=== PATIENT | male | born 1995 | race African-American/Black ===

== ENCOUNTER 2020-03-20 18:21 | Emergency (ER) | payer SELFPAY ==
[2020-03-20 18:22] VITALS: BP 162/90; PULSE 96; RESP 16; TEMP 36.1; O2SAT 98; BMI 40.1
[2020-03-20 18:28] VITALS: BP 162/90; PULSE 96; RESP 16; TEMP 36.1; O2SAT 98
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
[2020-03-20] MEDS: Cephalexin 250 MG Capsule 500 MG PO (18:57)
== END 2020-03-20 19:15 | disposition home or self-care (01) ==
LOC: ED 19:12
PROVIDERS: Emergency Provider Emergency Medicine
DX: T24.001A Burn of unspecified degree of unspecified site of right lower limb, except ankle and foot, initial encounter (principal); L08.9 Local infection of the skin and subcutaneous tissue, unspecified; Y27.9XXA Contact with unspecified hot objects, undetermined intent, initial encounter
CPT/HCPCS: 99283

== ENCOUNTER 2020-04-07 21:24 | Emergency (ER) | payer SELFPAY ==
[2020-04-07 21:24] VITALS: BP 151/79; PULSE 84; RESP 18; TEMP 36.3; O2SAT 98; BMI 40.1
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
[2020-04-07] MEDS: Cephalexin 250 MG Capsule 500 MG PO (22:28)
== END 2020-04-07 22:32 | disposition home or self-care (01) ==
LOC: ED 22:12
PROVIDERS: Emergency Provider Emergency Medicine
DX: L03.114 Cellulitis of left upper limb (principal)
CPT/HCPCS: 99283